=== PATIENT | male | born 1970 | race Two or more races ===

== ENCOUNTER 2025-02-22 13:04 | Emergency (ER) | payer MEDICAID, SELFPAY ==
[2025-02-22 13:29] VITALS: BP 113/79; PULSE 134; RESP 20; TEMP 36.9; O2SAT 97
--- NOTE | 2025-02-22 13:35 | XR_ITS ---
EXAMINATION: AP lateral chest 2 views TECHNIQUE: AP upright lateral chest 2 views Date and time: February 22, 2025, 1344 hours INDICATIONS: Shortness of breath and weakness today. FINDINGS: Normal heart size The lungs are clear Osseous structures are intact IMPRESSION: No active disease
--- NOTE | 2025-02-22 13:36 | PD.EDRME ---
Rapid Medical Screening Exam RME Arrival date/time: 02/22/25 13:04 54-year-old male presents the emergency room today for complaint of generalized fatigue, fever, generalized bodyaches Chief Complaint: GI Bleed Vital signs: Vital Signs Temperature 98.5 F 02/22/25 13:29 Pulse Rate 134 H 02/22/25 13:29 Respiratory Rate 20 02/22/25 13:29 Blood Pressure 113/79 02/22/25 13:29 Pulse Oximetry (%) 97 02/22/25 13:29 Oxygen Delivery Method Room Air 02/22/25 13:29
[2025-02-22] MEDS: IBUPROFEN TAB 400 MG TABLET 800 MG PO (13:47)
[2025-02-22 14:04] LABS: Collection Type, Urine Clean Catch
[2025-02-22 14:27] LABS: Lactate (Lactic Acid) 1.6 mMol/L (0.4-2.0)
[2025-02-22 14:35] LABS: Basophils # (Auto) 0.0 Thou/mm3 (0.0-0.2); Basophils % (Auto) 0 % (0-2.5); Eosinophils # (Auto) 0.0 Thou/mm3 (0.0-0.5); Eosinophils % (Auto) 0 % (0-10); Hematocrit 40.0 % (41.0-53.0); Hemoglobin 13.6 g/dL (13.5-16.0); Immature Granulocytes Auto 0.01 Thou/mm3 (0.00-0.00); Lymphocytes # (Auto) 2.1 Thou/mm3 (1.0-4.8); Lymphocytes % (Auto) 26 % (10-50); Mean Corpuscular HGB Conc 34.0 g/dl (31.0-37.0); Mean Corpuscular Hemoglobin 28.3 pg (25.0-35.0); Mean Corpuscular Volume 83 fL (80-100); Monocytes # (Auto) 1.1 Thou/mm3 (0.0-0.8); Monocytes % (Auto) 13 % (0-12); Neutrophils # (Auto) 4.8 Thou/mm3 (1.8-7.7); Neutrophils % (Auto) 60 % (37-80); Nucleated Red Blood Cell # 0.00 Thou/mm3 (0.00-0.00); Nucleated Red Blood Cell % 0 /100 WBC (0); Platelet Count 261 Thou/mm3 (140-440); RDW Standard Deviation 38.0 fL (35.1-43.9); Red Blood Count 4.81 Miln/mm3 (4.50-5.90); White Blood Count 8.1 Thou/mm3 (3.8-10.6)
[2025-02-22 14:44] LABS: Glucose Estimated Average 289 mg/dL (80-131); Hemoglobin A1C 11.7 % Hgb (4.8-6.0)
[2025-02-22 14:59] LABS: Alanine Aminotransferase 15 U/L (10-49); Albumin, Serum 4.2 gm/dL (3.5-5.0); Albumin/Globulin Ratio 1.3 (1.2-2.2); Alkaline Phosphatase 102 U/L (46-116); Anion Gap 10 (7-16); Aspartate Amino Transferase 14 U/L (0-34); BUN/Creatinine Ratio 11 Ratio (12-20); Bilirubin,Total 0.4 mg/dL (0.3-1.2); Blood Urea Nitrogen 12 mg/dL (9-23); Calcium 8.5 mg/dL (8.3-10.6); Calcium (Corrected) 8.5 mg/dL (8.5-10.1); Carbon Dioxide 25.1 mMol/L (20.0-31.0); Chloride 95 mMol/L (98-107); Creatinine (Component) 1.1 mg/dL (0.6-1.3); Globulin 3.3 gm/dL (2.3-3.5); Glucose 343 mg/dL (74-106); Osmolality,Calculated 274 (275-295); Potassium 3.7 mMol/L (3.4-5.1); Procalcitonin 0.08 ng/ml (0.0-0.49); Sodium 130 mMol/L (136-145); Total Protein 7.5 gm/dL (5.7-8.2); eGFR > 60 See Note
[2025-02-22 16:31] LABS: Influenza A Ag Negative; Influenza B Ag Negative
[2025-02-22 16:53] LABS: Amphetamine/Methamp Scrn,U Positive (Negative); Barbiturate Screen,Urine Negative (Negative); Benzodiazepines Screen,Urine Negative (Negative); Benzoylecgonine Screen, Ur Negative (Negative); Fentanyl Screen,Urine Negative (Negative); Opiate Screen,Urine Negative (Negative); THC Screen,Urine Positive (Negative)
[2025-02-22 16:56] LABS: Bilirubin,Urine Negative (Negative); Blood,Urine Negative (Negative); Clarity,Urine Clear (Clear/Hazy); Color,Urine Yellow (Lt Yel-Yel); Glucose, Urine 4+ (Negative); Ketones,Urine Negative (Negative); Leukocyte Esterase,Urine Negative (Negative); Nitrite,Urine Negative (Negative); PH,Urine 6.0 (5.0-7.0); Protein,Urine 1+ (Neg - Trace); RBC,Urine 2 /hpf (0-3); Specific Gravity,Urine 1.039 (1.001-1.035); Squamous Epithelial Cell,Urine 1 /hpf (0-5); Urobilinogen,Urine Negative mg/dL (0.0-1.0); WBC,Urine 2 /hpf (0-5)
[2025-02-22 17:50] VITALS: BP 80/53; BP 89/57; PULSE 70; RESP 18; TEMP 36.6; O2SAT 96
--- NOTE | 2025-02-22 17:57 | EDNOTE_ITS ---
ED GI Bleed RME/HPI General Chief complaint: GI Bleed Stated complaint: SOB, chills, rectal bleeding Time Seen by Provider: 02/22/25 15:44 Arrival date/time: 02/22/25 13:04 Limitations: no limitations RME / HPI RME / HPI Narrative: 02/22/25 13:04 54-year-old male presents the emergency room today for complaint of generalized fatigue, fever, generalized bodyaches Dr. Philip evaluation Patient is a 54-year-old male medical history notable for polysubstance use, diabetes, send emergency department with concerns for shortness of breath chills and rectal bleeding. Denies fevers, chills, nausea, vomiting, chest pain, abdominal pain, dysuria, hematuria, melena, bloody stools. Related Data Home Medications ?Medication ?Instructions ?Recorded ?Confirmed albuterol sulfate 90 mcg/actuation 90 mcg inhalation B ID PRN sob 07/17/23 07/17/23 aerosol inhaler atorvastatin 80 mg tablet mg 07/17/23 empagliflozin 25 mg tablet mg 07/17/23 (Jardiance) gabapentin 800 mg tablet mg 07/17/23 insulin glargine 100 unit/mL (3 unit subcut 07/17/23 mL) subcutaneous pen (Hoffmeister Leuchtenaglar KwikPen U-100 Insulin) insulin syringe-needle U-100 1/2 07/17/23 07/17/23 mL 31 gauge x 15/64 (BD Veo Insulin Syringe Ultra-Fine) lisinopril 10 mg tablet mg 07/17/23 Previous Rx's ?Medication ?Instructions ?Recorded blood sugar diagnostic (Contour #100 ea 07/18/23 Next Test Strips) blood-glucose meter #1 ea 07/18/23 flash glucose scanning reader #1 ea 07/18/23 (FreeStyle Josefina 2 Warren) flash glucose sensor (FreeStyle #1 ea 07/18/23 Josefina 2 Sensor kit) lancets 21 gauge (Comfort EZ #100 ea 07/18/23 Lancets) Allergies Allergy/AdvReac Type Severity Reaction Status Date / Time No Known Allergies Allergy Verified 02/22/25 13:08 ED Exam General Limitations: Present no limitations General appearance: Present alert, in no apparent distress and other Head Head exam: Present atraumatic and normocephalic Eye Eye exam: Present normal appearance and PERRL ENT ENT exam: Present normal exam and normal oropharynx Neck Neck exam: Present normal inspection and full ROM Chest Chest inspection: Present normal inspection and symmetric chest wall rise Respiratory Respiratory exam: Present normal lung sounds bilaterally; Absent respiratory distress, wheezes or stridor Cardiovascular Cardiovascular exam: Present tachycardia Abdominal Exam Abdominal exam: Present soft; Absent distention, tenderness or guarding Rectal Exam Rectal exam: Present other (Patient declined rectal exam) Extremities Exam Extremities exam: Present normal inspection and other (Patient declined us removing his shoes and evaluated the patient) Neurological Exam Neurological exam: Present alert, oriented X3 and other (No focal deficit) Psychiatric Psychiatric exam: Present normal affect Skin Skin exam: Present warm, dry, intact and other (Patient with multiple excoriations on his lower extremities however no surrounding erythema fluctuance or crepitus) Course Quality Measures none Orders Category Date Time Status Bedside COVID-19 Antigen Test NOW Care 02/22/25 13:35 Active EKG (ED ONLY) *Do not use* NOW Care 02/22/25 18:00 Completed EKG (ED Only) Stat Exams 02/22/25 18:00 Draft XR chest 2V Stat Exams 02/22/25 13:35 Completed A1C [Glycohemoglobin w (eAG)] Stat Lab 02/22/25 14:12 Completed BNP [B-Type Natriuretic Peptide] Stat Lab 02/22/25 18:20 Completed Blood Culture (Lab) Stat Lab 02/22/25 14:12 Received CBC Stat Lab 02/22/25 14:12 Completed Comprehensive Metabolic Panel Stat Lab 02/22/25 14:12 Completed Drug Screen,Urine Stat Lab 02/22/25 16:30 Completed FLU A&B [Influenza A & B Rapid Panel] Stat Lab 02/22/25 15:04 Completed Hemoglobin and Hematocrit Stat Lab 02/22/25 18:20 Completed Lactate (Lactic Acid) Stat Lab 02/22/25 14:12 Completed Procalcitonin Stat Lab 02/22/25 14:12 Completed Troponin I Stat Lab 02/22/25 18:20 Completed Type and Screen Stat Lab 02/22/25 18:20 Received Urinalysis Stat Lab 02/22/25 16:33 Completed Urine Culture Stat Lab 02/22/25 13:55 Received Ibuprofen Tab [Motrin Tab] Med 02/22/25 13:35 Discontinued 800 mg PO X1 ONE Ringers Lactated 1000 ml [Lactated Ringers] 1,000 ml Med 02/22/25 17:58 Discontinued IV 999 mls/hr Ringers Lactated 1000 ml [Lactated Ringers] 1,000 ml Med 02/22/25 18:11 Discontinued IV 999 mls/hr Ringers Lactated 500 ml [Lactated Ringers] 500 ml Med 02/22/25 17:59 Discontinued IV 500 mls/hr Ringers Lactated 500 ml [Lactated Ringers] 500 ml Med 02/22/25 19:39 Ordered IV 500 mls/hr Vital Signs Vital signs: Vital Signs Temperature 98.5 F 02/22/25 13:29 Pulse Rate 134 H 02/22/25 13:29 Respiratory Rate 20 02/22/25 13:29 Blood Pressure 113/79 02/22/25 13:29 Pulse Oximetry (%) 97 02/22/25 13:29 Oxygen Delivery Method Room Air 02/22/25 13:29 GI Bleed MDM Narrative MDM Narrative:: Patient is a 54-year-old male is in the emergency department with concerns for weakness, bright red blood per rectum and weakness. Vital signs and exam as listed. Concern for variceal bleed, gastritis, hemorrhoid. Patient also presented tachycardic however not tachypneic not febrile not septic. Prior provider evaluated patient. Ordered labs and chest x-ray. Labs without any acute hematologic abnormality. Patient sodium 130, no significant acute electrolyte abnormality. Lactic acid normal biliary studies normal procalcitonin not elevated urinalysis leuk esterase -2 white blood cells 2 red blood cells no bacteria no nitrites drug screen positive for amphetamines and marijuana. Viral swabs negative. Chest x-ray unremarkable. Nursing team reevaluated patient, patient blood pressure systolic in the 80s. Patient was placed in resuscitation room IV access obtained. I ordered type and screen. Will also order repeat H&H. EKG performed today at 1837 notable for sinus rhythm, normal intervals, nonspecific T wave changes, not a cardiac alert Repeat H&H stable, BNP not elevated. On repeat evaluation patient blood pressure significantly improved he is hemodynamically stable and not in distress. Patient received IV fluids here in the emergency department. Will discharge to home with close return precautions follow-up with primary care doctor as well as recommendation on sobriety. Patient data External records reviewed:: [facility] previous records Clinical information provided by:: patient Social determinants that could affect healthcare access:: substance use Patient has the following chronic illnesses:: See MDM How is presenting disease/condition affected by chronic disease/condition?: exacerbated by Evaluation data The following diagnostics were reviewed and interpreted by me:: lab results, radiology exam(s) and EKG tracing(s) Lab and/or radiology exams considered but not ordered:: None Interpretation Summary: See MDM Medications / Prescriptions Medications or Prescriptions considered but not ordered:: None Medication administrations:: Medication Administration History Lactated Ringer's (Lactated Ringers) 500 mls @ 500 mls/hr IV .Q1H ONE Stop: 02/22/25 20:38 Discontinued Medications Lactated Ringer's (Lactated Ringers) 1,000 mls @ 999 mls/hr IV .Q1H1M ONE Stop: 02/22/25 18:58 Last Admin: 02/22/25 18:14 Dose: Not Given Documented By: CLARE Non-Admin Reason: Cancelled by Provider Lactated Ringer's (Lactated Ringers) 500 mls @ 500 mls/hr IV .Q1H ONE Stop: 02/22/25 18:58 Last Admin: 02/22/25 18:15 Dose: Not Given Documented By: CLARE Non-Admin Reason: Cancelled by Provider Lactated Ringer's (Lactated Ringers) 1,000 mls @ 999 mls/hr IV .Q1H1M ONE Stop: 02/22/25 19:11 Last Infusion: 02/22/25 19:28 Dose: Infused Documented By: [email or web address] Admin: 02/22/25 18:14 Dose: 999 mls/hr Documented By: CLARE Comments: 500ML ADMINISTERED ONLY PER VERBAL ORDER Ibuprofen (Ibuprofen Tab 400 Mg Tablet) 800 mg PO X1 ONE Stop: 02/22/25 13:36 Last Admin: 02/22/25 13:47 Dose: 800 mg Documented By: See above Consultations Consultation(s) initiated? (list below): No Diagnosis GI bleed differential diagnosis: other (See MDM) Most likely diagnosis given after review of the tests above:: Polysubstance use, tachycardia, hypotension brief resolved Admission Indicated Admission indicated?: not indicated Admission Request Was there a request for admission?: No Disposition Plan Disposition Plan: Discharge Discharge Attestation Discharge Attestation: The patient and all family members were given an opportunity to ask questions and understood the discharge instructions. Discharge instructions specifically effects, indications for sooner follow up or return to the emergency department, and the expected course of current diagnosis. Patient condition: Stable Critical Care Time Critical Care Time Critical Care Time: Yes Total Critical Care Time (min.): 45 Attestation: Due to a high probability of clinically significant, life threatening deterioration, the patient required my highest level of preparedness to intervene emergently and I personally spent this critical care time directly and personally managing the patient. This critical care time included obtaining a history; examining the patient; pulse oximetry; ordering and review of studies; arranging urgent treatment with development of a management plan; evaluation of patient's response to treatment; frequent reassessment; and, discussions with other providers. This critical care time was performed to assess and manage the high probability of imminent, life-threatening deterioration that could result in multi-organ failure. It was exclusive of separately billable procedures and treating other patients and teaching time. Please see MDM section and the rest of the note for further information on patient assessment and treatment. Discharge Plan Plan Patient Disposition: HOME (Self Care) Prescriptions/Referrals Prescriptions/Med Rec: No Action albuterol sulfate 90 mcg/actuation HFA aerosol inhaler 90 mcg INHALATION BID PRN (Reason: sob) atorvastatin 80 mg tablet Patient Comments: TAKE 1 TABLET BY MOUTH EVERY DAY FOR 90 DAYS gabapentin 800 mg tablet lisinopril 10 mg tablet Patient Comments: TAKE 1 TABLET BY MOUTH EVERY DAY FOR 90 DAYS insulin glargine [Basaglar KwikPen U-100 Insulin] 100 unit/mL (3 mL) insulin pen SUBCUT (DME) insulin syringe-needle U-100 [BD Veo Insulin Syringe UF] 1/2 mL 31 gauge x 15/64 syringe Patient Comments: USE DIRECTED 3 TIMES A DAY Jardiance 25 mg tablet Patient Comments: TAKE 1 TABLET BY MOUTH EVERY DAY (DME) FreeStyle Josefina 2 Warren Misc See Rx Instructions .Route Qty: 1 0RF Rx Instructions: As directed (DME) FreeStyle Josefina 2 Sensor Kit See Rx Instructions .Route Qty: 1 0RF Rx Instructions: As directed (DME) blood-glucose meter Kit See Rx Instructions .Route Qty: 1 0RF Rx Instructions: As directed (DME) Contour Next Test Strips Strip See Rx Instructions .Route Qty: 100 2RF Rx Instructions: As directed (DME) lancets [Comfort EZ Lancets] 21 gauge misc See Rx Instructions .Route Qty: 100 2RF Rx Instructions: As directed Referrals: No Primary/Family,Physician [Primary Care Provider] - In 1 week Problem List Clinical Impression: Polysubstance abuse, Methamphetamine abuse, Tachycardia, Weakness Patient/Caregiver Discharge Instructions Education Materials: Understanding Tachycardia, ED Drug Abuse Additional Instructions: Your labs today were reassuring your EKG did not show any evidence of acute cardiac stress. It is important that you hydrate well I also recommend sobriety as methamphetamines and marijuana can lead to severe disability, heart attacks, strokes and even . Please follow-up with your primary care doctor within 1 to 2 days return immediately if you have any worsening symptoms or symptoms of concern. Print Language: Jamaican Stand Alone Forms: Moni Award Info., Patient Portal Info Letter
--- NOTE | 2025-02-22 18:00 | EKG_ITS ---
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
[2025-02-22] MEDS: RINGERS LACTATED 1000 ML 1,000 ML 999 ML IV (18:14)
[2025-02-22 18:35] LABS: Hematocrit 37.3 % (41.0-53.0); Hemoglobin 13.0 g/dL (13.5-16.0)
[2025-02-22 18:38] VITALS: BP 162/105; PULSE 100; RESP 24; TEMP 36.3; O2SAT 97
[2025-02-22 18:48] LABS: Troponin I < 0.002 ng/mL (0.0-0.045)
[2025-02-22 18:50] LABS: B-Type Natriuretic Peptide < 20 pg/mL (0-100)
[2025-02-22 19:11] VITALS: BP 169/115; PULSE 99; RESP 19; TEMP 36.8; O2SAT 97
[2025-02-22] MEDS: RINGERS LACTATED 1000 ML 500 ML IV (19:40)
[2025-02-22 20:24] VITALS: BP 126/82; PULSE 106; RESP 17; TEMP 36.7; O2SAT 97
== END 2025-02-22 20:24 | disposition home or self-care (01) ==
PROVIDERS: Nurse Practitioner Primary Care; Emergency Provider Emergency Medicine
DX: K92.2 Gastrointestinal hemorrhage, unspecified (principal); E11.9 Type 2 diabetes mellitus without complications; F15.10 Other stimulant abuse, uncomplicated
CPT/HCPCS: 36415; 71046; 80053; 80307; 81001; 83036; 83605; 83880; 84145; 84484; 85014; 85018; 85025; 86850; 86900; 86901; 87040; 87086; 87502; 87811; 93005; 96360; 96361; 99285; J7120; A9270